=== PATIENT | male | born 1950 | race Caucasian/White ===

== ENCOUNTER 2018-06-04 19:42 | Emergency (ER) | payer MEDICARE, OTHER ==
[~2018-06-04] VITALS: Ht 188 cm; Wt 110.3 kg
[~2018-06-04 19:42] MED LIST: AMLO5TAB4; HYDR12.547; LISI-170; LORA1TAB; PRAV80TA
[2018-06-04 19:46] VITALS: BP 124/80
[2018-06-04] MEDS ORDERED: PROPARACAINE OPHTH 0.5%, 15ML RIGHTEYE ONE (20:00)
[2018-06-04] MEDS ORDERED: PROPARACAINE OPHTH 0.5%, 15ML ONE (20:06)
== END 2018-06-04 20:49 | disposition home or self-care (01) ==
LOC: ED 20:44
DX: H11.32 Conjunctival hemorrhage, left eye (principal)
CPT/HCPCS: 99283

== ENCOUNTER → 2018-07-12 | Outpatient (CLI) | payer MEDICARE | END | disposition home or self-care (01) | LOC: EDSEX → CFH 13:57 → MERGE 14:00 | PROVIDERS: ATTEND Internal Medicine Cardiovascular Disease | DX: R55 Syncope and collapse (principal); I10 Essential (primary) hypertension; E78.5 Hyperlipidemia, unspecified | CPT/HCPCS: 93306 ==